=== PATIENT | female | born 2000 | race Caucasian/White ===

== ENCOUNTER 2025-02-19 09:57 | Emergency (ER) | payer SELFPAY ==
--- OUTSIDE RECORDS SUMMARY | 2025-02-19 10:06 | XMS_ITS | Encounter Summary ---
Author Organization [facility] Address [address] [place] [address] Care Team Providers Care Main Line Assembler Name Role Phone Lilly Zamudio PERRY Primary Care Provider [phone] Vale Walter DO Unavailable Encounter Details Date Type Department Care Team (Late st Contact Info) Description 07/30/2021 Likehack Message Enc [facility] Family Medicine [facility] [address] [place] [address] [facility] Provider Contact informtion Social History Tobacco Use Types Packs/Day Years Used Date Smoking Tobacco: Never Smokeless Tobacco: Never Alcohol Use Standard Drinks/Week Comments No 0 (1 standard drink = 0.6 oz pur e alcohol) AUDIT-C Answer Date Recorded Frequency of Alcohol Consumption Never 05/20/2018 Average Number of Drinks Not on file 019 Frequency of Binge Drinking Not on file 01/2019 PHQ-2 Answer Date Recorded PHQ-2 Score - If the patient scores above 3, please move on to questions 3-9 4 07/30/2021 Comments No Sex and Gender Information Value Date Recorded Sex Assigned at Female 09/09/2018 10:31 PM CDT Legal Sex Female 10:21 AM CDT Gender Identity Female 09/09/2018 10:31 PM CDT Sexual Orientation Straight 09/09/2018 10 :31 PM CDT COVID-19 Exposure Response Date Recorded In the last 10 days, have yo u been in contact with someone who was confirmed or suspected to have Coronavirus/COVID-19? No / Unsure 07/23/2021 7:24 AM CDT documented as of this encounter Functional Status * RETIRED Are you deaf or do you have serious difficulty hearing Answer Date of Assessment Author Status No 09/09/2018 10:45 PM CDT Acti ve * RETIRED Are you blind or do you have serious difficulty seeing, even when wearing glasses? Answer Date of Assessment Author Status No 09/09/2018 10:45 PM CDT Acti ve * Do you have serious difficulty walking or climbing stairs? Answer Date of Assessment Author Status No 09/09/2018 10:45 PM CDT Germania Yoon RN Active * Do you have difficulty dressing or bathing? Answer Date of Assessment Author Status No 09/09/2018 10:45 PM CDT Germania Yoon RN Active * Because of a physical, mental, or emotional condition, do you have difficulty doing errands alone such as visiting a doctor's office or shopping? Answer Date of Assessment Author Status No 09/09/2018 10:45 PM CDT Germania Yoon RN Active * Calculated C-SSRS Risk Score (Lifetime/Recent) Answer Date of Assessment Author Status No Risk Indicated 07/30/2021 12:49 PM CDT Miguel Urban MA Active * [place] Suicide Severity Rating Scale (Screener/Recent Self-Report) Question Answer Date of Assessment Author Status 1. Wish to be (Past 1 Month) No 07/30/2021 12:49 PM CDT Summer Urban MA Active 2. Non-Specific Active Suicidal Thoughts (Past 1 Month) No 07/30/2021 12:49 PM CDT Summer Urban MA Active 6. Suicidal Behavior (Lifetime) No 07/30/2021 12:49 PM Summer West MA Active documented as of this encounter Mental Status * Because of a physical, mental, or emotional condition, do you have serious difficulty concentrating, remembering, or making decisions? Answer Entry Date Author Status No 09/09/2018 10:45 PM CDT Germania Yoon RN Active documented in this encounter Plan of Treatment Upcoming Encounters Date Type Department Care Team (Late st Contact Info) Description 03/30/2025 2:40 PM CREPE BOX TENDER Office Visit [facility] Family Medicine - [place] [address] [place] [id number] Lilly Zamudio NP [address] [place] [address] documented as of this encounter Visit Diagnoses Not on filedocumented in this encounter Additional Health Concerns Infection Onset Date Last Indicated Resolved Time COVID-19 Rule Out 09/15/2021 09/15/2021 09/15/2021 1:56 PM CDT COVID-19 Rule Out 04/10/2022 04/10/2022 04/11/2022 9:52 AM CREPE BOX TENDER COVID-19 Rule Out 04/25/2022 04/25/2022 04/26/2022 2:02 AM CREPE BOX TENDER COVID-19 Confirmed 04/25/2022 04/25/2022 12:32 AM CREPE BOX TENDER COVID-19 Rule Out 12/19/2022 12/19/2022 12/20/2022 8:12 AM CDT Assessment Noted Time PHQ-9 Depression Total Score: 13 022 12:41 PM CDT documented as of this encounter Care Teams Main Line Assembler Relationship Specialty Start Date End Date Lilly Zamudio NP [address] [place] [address] PCP - General NURSE PRACTITIONER 05/14/18 Vale Walter DO [address] [place] [address] Referring Physician OBGYN 09/10/23 08/30/24 documented as of this encounter
--- OUTSIDE RECORDS SUMMARY | 2025-02-19 10:06 | XMS_ITS | Encounter Summary ---
Author Organization [facility] Address [address] [place] [address] Care Team Providers Care Environmental Engineer Scientist Name Role Phone Unavailable Primary Care Provider Unavailabl e Encounter Details Date Type Department Care Team (Late st Contact Info) Description 1998 Outpatient Historical [facility] Pediatrics - [facility] [address] [address] [facility] [address] [place] [address] James Dumont MD [address] [facility] [address] [place] [address] Social History Tobacco Use Types Packs/Day Years Used Date Smoking Tobacco: Never Assessed Comments Unknown Sex and Gender Information Value Date Recorded Sex Assigned at Not on file Legal Sex Female 5:25 AM BREAKER MECHANIC Gender Identity Not on file Sexual Orientation Not on file documented as of this encounter Plan of Treatment Not on file documented as of this encounter Procedures Procedure Name Priority Date/Time Associated Diagnosis Comments CHG POLIOVIRUS IPV VFC 8 12:00 AM BREAKER MECHANIC CHG DTAP VACCINE <7 YO IM VFC 1998 12:00 AM BREAKER MECHANIC documented in this encounter Visit Diagnoses Not on filedocumented in this encounter
--- OUTSIDE RECORDS SUMMARY | 2025-02-19 10:06 | XMS_ITS | Encounter Summary ---
Author Organization [facility] Address [address] [place] [address] Care Team Providers Care Sales Route Driver Helper Name Role Phone Unavailable Primary Care Provider Unavailabl e Encounter Details Date Type Department Care Team (Late st Contact Info) Description 1998 Outpatient Historical [facility] Pediatrics - [facility] [address] [address] [facility] [address] [place] [address] James Dumont MD [address] [facility] [address] [place] [address] Social History Tobacco Use Types Packs/Day Years Used Date Smoking Tobacco: Never Assessed Comments Unknown Sex and Gender Information Value Date Recorded Sex Assigned at Not on file Legal Sex Female 5:25 AM ICU TECH Gender Identity Not on file Sexual Orientation Not on file documented as of this encounter Plan of Treatment Not on file documented as of this encounter Visit Diagnoses Not on filedocumented in this encounter
--- OUTSIDE RECORDS SUMMARY | 2025-02-19 10:06 | XMS_ITS | Encounter Summary ---
Author Organization [facility] Address [address] [facility] [place] [address] Care Team Providers Care Air Cargo Ground Crew Supervisor Name Role Phone Lilly Zamudio MI-AUTOCAD OPERATOR Primary Care Provider [phone] Encounter Details Date Type Department Care Team (Late st Contact Info) Description 12/21/2024 Results Follow-Up [facility] - CONVENTION PLANNER [address] [place] [address] Christian Slaughter MD [address] [place] [address] Social History Tobacco Use Types Packs/Day Years Used Date Smoking Tobacco: Never Smokeless Tobacco: Never Alcohol Use Standard Drinks/Week Comments Never 0 (1 standard drink = 0.6 oz pur e alcohol) PHQ-2 Answer Date Recorded Patient Health Questionnaire-2 Score 0 10/25/2024 Comments No Sex and Gender Information Value Date Recorded Sex Assigned at Not on file Legal Sex Female 8:00 AM SUBSTITUTE TEACHER Gender Identity Not on file Sexual Orientation Not on file documented as of this encounter Plan of Treatment Not on file documented as of this encounter Procedures Procedure Name Priority Date/Time Associated Diagnosis Comments PROGESTERONE Routine 01/24/2025 10:00 AM CDT Female infertility PROGESTERONE Routine 12/23/2024 1:07 PM CDT Female infertility documented in this encounter Results * PROGESTERONE (01/24/2025 10:00 AM CDT) Progesterone 9.4 ng/mL [facility] ACCOUNT BILL Comment: Follicular phase 0.1 - 0.9 Luteal phase 1.8 - 23.9 Ovulation phase 0.1 - 12.0 First trimester 11.0 - 44.3 Second trimester 25.4 - 83.3 Third trimester 58.7 - 214.0 Postmenopausal 0.0 - 0.1 Blood BLOOD SPECIMEN / Unknown 01/24/2025 10:00 AM CDT 01/24/2025 Narrative [facility] ACCOUNT BILL - 01/25/2025 8:11 AM CDT Performed at: - [facility] [id number] Window Assembler: Alexander Todd PhD, Phone: [phone] Christian Slaughter MD LAB - CHEMISTRY ORDERABLES Fi nal Result [facility] ACCOUNT BILL [address] [place] [address] * PROGESTERONE (12/23/2024 1:07 PM CDT) Progesterone 3.7 ng/mL [facility] ACCOUNT BILL Comment: Follicular phase 0.1 - 0.9 Luteal phase 1.8 - 23.9 Ovulation phase 0.1 - 12.0 First trimester 11.0 - 44.3 Second trimester 25.4 - 83.3 Third trimester 58.7 - 214.0 Postmenopausal 0.0 - 0.1 Blood BLOOD SPECIMEN / Unknown 12/23/2024 1:07 PM CDT 12/23/2024 Narrative [facility] ACCOUNT BILL - 12/24/2024 9:10 AM CDT Performed at: - [facility] [address] [id number] Window Assembler: Alexander Todd PhD, Phone: [phone] Christian Slaughter MD LAB - CHEMISTRY ORDERABLES Fi nal Result [facility] ACCOUNT BILL [address] [place] [address] documented in this encounter Visit Diagnoses Diagnosis Female infertility- Primary documented in this encounter Care Teams Air Cargo Ground Crew Supervisor Relationship Specialty Start Date End Date Lilly Zamudio APRN-AUTOCAD OPERATOR [address] [place] [address] PCP - General Allergy and Immunology 10/25/24 documented as of this encounter
--- OUTSIDE RECORDS SUMMARY | 2025-02-19 10:06 | XMS_ITS | Encounter Summary ---
Author Organization [facility] Address [address] [place] [address] Care Team Providers Care Escrow Representative Name Role Phone Lilly Zamudio PERRY Primary Care Provider [phone] Vale Walter DO Unavailable [phone] Encounter Details Date Type Department Care Team (Late st Contact Info) Description 04/08/2023 Easy Metrics Message [facility] BUSINESS OFF[facility] Provider ACTION NEEDED Social History Tobacco Use Types Packs/Day Years Used Date Smoking Tobacco: Never Passive Smoke Exposure: Past Smokeless Tobacco: Never Alcohol Use Standard Drinks/Week Comments No 0 (1 standard drink = 0.6 oz pur e alcohol) AUDIT-C Answer Date Recorded Frequency of Alcohol Consumption Never 05/20/2018 Average Number of Drinks Not on file 019 Frequency of Binge Drinking Not on file 01/2019 PHQ-2 Answer Date Recorded Patient Health Questionnaire-2 Score 6 12/26/2022 Comments Yes Sex and Gender Information Value Date Recorded Sex Assigned at Female 09/09/2018 10:31 PM CDT Legal Sex Female 10:21 AM CDT Gender Identity Female 09/09/2018 10:31 PM CDT Sexual Orientation Straight 09/09/2018 10 :31 PM CDT documented as of this encounter Functional [...] Status No 09/09/2018 10:45 PM CDT Germania Yoon, RN Active * Do you have difficulty [...] PM CDT Germania Yoon RN Active documented as of this encounter Mental Status * Because of a physical, mental, or emotional condition, do you have serious difficulty concentrating, remembering, or making decisions? Answer Entry Date Author Status No 09/09/2018 10:45 PM CDT Germania Yoon RN Active documented in this encounter Plan of Treatment Upcoming Encounters Date Type Department Care Team (Late st Contact Info) Description 03/30/2025 2:40 PM PATTERN CUTTER Office Visit [facility] Family Medicine - [place] [address] [place] [phone] Lilly [place] [address] documented as of this encounter Visit Diagnoses Not on filedocumented in this encounter Additional Health Concerns Assessment Noted Time PHQ-9 Depression Total Score: 17 023 8:59 AM CDT documented as of this encounter Care Teams Escrow Representative Relationship Specialty Start Date End Date Lilly [place] [address] PCP - General NURSE PRACTITIONER 05/14/18 Vale Walter DO [address] [place] [address] Referring Physician OBGYN 09/10/23 08/30/24 documented as of this encounter
--- OUTSIDE RECORDS SUMMARY | 2025-02-19 10:06 | XMS_ITS | Encounter Summary ---
Author Organization [facility] Address [address] [place] [address] Care Team Providers Care Serging Machine Operator Name Role Phone Melvin Garcia Primary Care Provider [phone] Lilly Zamudio NP Primary Care Provider [phone] Vale Walter DO Unavailable [phone] Encounter Details Date Type Department Care Team (Latest Contact Info) Description 01/29/2018 Abstract [facility] Joaquina Ahn MD Social History Tobacco Use Types Packs/Day Years Used Date Smoking Tobacco: Never Assessed Comments Unknown Sex and Gender Information Value Date Recorded Sex Assigned at Female 09/09/2018 10:31 PM CDT Legal Sex Female 10:21 AM CDT Gender Identity Female 09/09/2018 10:31 PM CDT Sexual Orientation Straight 09/09/2018 10 :31 PM CDT documented as of this encounter Plan of Treatment Upcoming Encounters Date Type Department Care Team (Late st Contact Info) Description 03/30/2025 2:40 PM TOP BOTTOM ATTACHING MACHINE OPERATOR Office Visit [facility] Family Medicine - [place] [address] [place] [address] Lilly Zamudio NP [address] [place] [address] documented as of this encounter Visit Diagnoses Not on filedocumented in this encounter Additional Health Concerns Infection Onset Date Last Indicated Resolved Time COVID-19 Rule Out 09/15/2021 09/15/2021 09/15/2021 1:56 PM CDT COVID-19 Rule Out 04/10/2022 04/10/2022 04/11/2022 9:52 AM TOP BOTTOM ATTACHING MACHINE OPERATOR COVID-19 Rule Out 04/25/2022 04/25/2022 04/26/2022 2:02 AM TOP BOTTOM ATTACHING MACHINE OPERATOR COVID-19 Confirmed 04/25/2022 04/25/2022 12:32 AM TOP BOTTOM ATTACHING MACHINE OPERATOR COVID-19 Rule Out 12/19/2022 12/19/2022 12/20/2022 8:12 AM CDT documented as of this encounter Care Teams Serging Machine Operator Relationship Specialty Start Date End Date Melvin Garcia DO PCP - General 02/09/16 05/13/18 [place] [address] PCP - General NURSE PRACTITIONER 05/14/18 Vale Walter DO [address] [place] [address] Referring Physician DUNGN 09/10/23 08/30/24 documented as of this encounter
--- OUTSIDE RECORDS SUMMARY | 2025-02-19 10:06 | XMS_ITS | Encounter Summary ---
Author Organization [facility] Address [address] [place] [address] Care Team Providers Care Dimmer Board Operator Name Role Phone Unavailable Primary Care Provider Unavailabl e Encounter Details Date Type Department Care Team (Late st Contact Info) Description 1998 Outpatient Historical [facility] Pediatrics - [facility] [address] [address] [facility] [address] [place] [address] James Dumont MD [address] [facility] [address] [place] [address] Social History Tobacco Use Types Packs/Day Years Used Date Smoking Tobacco: Never Assessed Comments Unknown Sex and Gender Information Value Date Recorded Sex Assigned at Not on file Legal Sex Female 5:25 AM HOME INSURANCE AGENT Gender Identity Not on file Sexual Orientation Not on file documented as of this encounter Plan of Treatment Not on file documented as of this encounter Visit Diagnoses Not on filedocumented in this encounter
--- OUTSIDE RECORDS SUMMARY | 2025-02-19 10:06 | XMS_ITS | Encounter Summary ---
Author Organization [facility] Address [address] [place] [address] Care Team Providers Care Logistics Administrator Name Role Phone Unavailable Primary Care Provider Unavailabl e Encounter Details Date Type Department Care Team (Late st Contact Info) Description 1998 Outpatient Historical [facility] Pediatrics - [facility] [address] [address] [facility] [address] [place] [address] James Dumont MD [address] [facility] [address] [place] [address] Social History Tobacco Use Types Packs/Day Years Used Date Smoking Tobacco: Never Assessed Comments Unknown Sex and Gender Information Value Date Recorded Sex Assigned at Not on file Legal Sex Female 5:25 AM GLUE MACHINE OPERATOR Gender Identity Not on file Sexual Orientation Not on file documented as of this encounter Plan of Treatment Not on file documented as of this encounter Visit Diagnoses Not on filedocumented in this encounter
--- OUTSIDE RECORDS SUMMARY | 2025-02-19 10:06 | XMS_ITS | Encounter Summary ---
Author Organization [facility] Address [address] [place] [address] Care Team Providers Care Reducer Name Role Phone Unavailable Primary Care Provider Unavailabl e Encounter Details Date Type Department Care Team (Late st Contact Info) Description [address] [facility] Pediatrics - [facility] [address] [address] [facility] [address] [place] [address] James Dumont MD [address] [facility] [address] [place] [address] Social History Tobacco Use Types Packs/Day Years Used Date Smoking Tobacco: Never Assessed Comments Unknown Sex and Gender Information Value Date Recorded Sex Assigned at Not on file Legal Sex Female 5:25 AM OBSTETRICAL TECH Gender Identity Not on file Sexual Orientation Not on file documented as of this encounter Plan of Treatment Not on file documented as of this encounter Visit Diagnoses Not on filedocumented in this encounter
--- OUTSIDE RECORDS SUMMARY | 2025-02-19 10:06 | XMS_ITS | Encounter Summary ---
Author Organization [facility] Address [address] [place] [address] Care Team Providers Care Wafer Fabricator Name Role Phone Unavailable Primary Care Provider Unavailabl e Encounter Details Date Type Department Care Team (Late st Contact Info) Description 1998 Outpatient Historical [facility] Pediatrics - [facility] [address] [address] [facility] [address] [place] [address] James Dumont MD [address] [facility] [address] [place] [address] Social History Tobacco Use Types Packs/Day Years Used Date Smoking Tobacco: Never Assessed Comments Unknown Sex and Gender Information Value Date Recorded Sex Assigned at Not on file Legal Sex Female 5:25 AM ECOLOGY TEACHER Gender Identity Not on file Sexual Orientation Not on file documented as of this encounter Plan of Treatment Not on file documented as of this encounter Visit Diagnoses Not on filedocumented in this encounter
--- OUTSIDE RECORDS SUMMARY | 2025-02-19 10:06 | XMS_ITS | Patient Health Record ---
Author Organization [facility] Address [address] [place] [address] Care Team Providers Care Casting House Laborer Name Role Phone Luca Young Unavailable [phone] Allergies No Known Allergies Reason For Referral No Information Plan Of Treatment No Information Insurance Providers Payer Name Payer Address Payer Phone Subscriber Number Group Number Insured Name Patient Relationship to Insured Coverage Start Date Coverage End Date [place], [place] [id number] Karissa Shepherd Self - patient is the insured Medical (General) History Surgical History Surgery Date(Month/Year)
--- OUTSIDE RECORDS SUMMARY | 2025-02-19 10:06 | XMS_ITS | Encounter Summary ---
Author Organization [facility] Address [address] [place] [address] Care Team Providers Care Thread Tool Grinder Set Up Operator Name Role Phone Unavailable Primary Care Provider Unavailabl e Encounter Details Date Type Department Care Team (Late st Contact Info) Description 1998 Outpatient Historical [facility] Pediatrics - [facility] [address] [address] [facility] [address] [place] [address] James Dumont MD [address] [facility] [address] [place] [address] Social History Tobacco Use Types Packs/Day Years Used Date Smoking Tobacco: Never Assessed Comments Unknown Sex and Gender Information Value Date Recorded Sex Assigned at Not on file Legal Sex Female 5:25 AM PROFESSOR OF ARCHAEOLOGY Gender Identity Not on file Sexual Orientation Not on file documented as of this encounter Plan of Treatment Not on file documented as of this encounter Visit Diagnoses Not on filedocumented in this encounter
--- OUTSIDE RECORDS SUMMARY | 2025-02-19 10:06 | XMS_ITS | Clinical Summary ---
Author Organization [facility] Address [address] [place] [address] Phone Care Team Providers Care Seed Sorter Name Role Phone Unavailable Primary Care Provider Unavailabl e Allergies No known active allergies Medications sertraline (ZOLOFT) 100 mg tablet Take 100 mg by mouth daily. 4 Active letrozole (FEMARA) 2.5 mg tablet Take 2.5 mg by mouth see administration instructions. Take one tablet on cycle day 3 through 7. 5 Active gabapentin (NEURONTIN) 300 mg capsule Take 300 mg by mouth 3 times daily. 4 Active vibegron (Gemtesa) 75 mg Tablet Take 75 mg by mouth daily. 5 Active albuterol sulfate HFA 90 mcg/actuation aerosol inhaler Take 2 Puffs by inhalation every 6 hours as needed. Active Encounters Date Type Department Care Team Description 02/15/2025 External Device Data ST[facility] ABSTRACTION Provider, Abstract 02/08/2025 External Device Data [facility] ABSTRACTION Provider, Abstract 02/08/2025 External Device Data [facility] ABSTRACTION Provider, Abstract 02/08/2025 External Device Data [facility] ABSTRACTION Provider, Abstract 01/12/2025 External Device Data [facility] ABSTRACTION Provider, Abstract 01/11/2025 External Device Data [facility] ABSTRACTION Provider, Abstract 01/11/2025 External Device Data [facility] ABSTRACTION Provider, Abstract 01/08/2025 10:42 AM CDT - 01/08/2025 1:27 PM CDT Emergency [facility] Emergency Department [address] [place] [id number] Richard Szymanski MD Moderate left ankle sprain, initial encounter (Primary Dx); Sprain of right ankle, unspecified ligament, initial encounter Discharge Disposition: Home or Self Care 01/08/2025 Travel from Last 3 Months Social History Tobacco Use Types Packs/Day Years Used Date Smoking Tobacco: Never Smokeless Tobacco: Never Tobacco Cessation:Counseling Given: Not Answered Alcohol Use Standard Drinks/Week Comments Never 0 (1 standard drink = 0.6 oz pur e alcohol) Feeling Safe Answer Date Recorded Are you in a relationship wi th someone who hurts you emotionally and/or physically? 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 Gender Identity Not on file Sexual Orientation Not on file Last Filed Vital Signs Vital Sign Reading Time Taken Comments Blood Pressure 125/71 01/08/2025 1:15 PM CDT Pulse 62 01/08/2025 1:15 PM CDT Temperature 36.8 C (98.2 F) 01/08/2025 10:45 AM CDT Respiratory Rate 17 01/08/2025 10:45 AM CDT Oxygen Saturation 96% 01/08/2025 1:15 PM CDT Inhaled Oxygen Concentration - - Weight 99.8 kg (220 lb) 01/08/2025 10:45 AM CDT Height 165.1 cm (5' 5) 01/08/2025 10:45 AM CDT Body Mass Index 36.61 01/08/2025 10:45 AM CDT Plan of Treatment Health Maintenance Due Date Last Done Comments DTAP/TDAP/TD VACCINES (7 - T d or Tdap) 12/16/2018 12/16/2008, 12/12/2003, 12/12/2003, Additional history exists CERVICAL CANCER SCREENING 2019 HPV/Cotest (21-29) 2019 PAP SMEAR 2019 INFLUENZA VACCINE (#1) 2024 03/28/2022, 2018 HPV VACCINES (1 - 3-dose SCD M series) 2025 HEPATITIS B VACCINES Completed 01/02/2009, 1998, 1998, Additional history exists Procedures Procedure Name Priority Date/Time Associated Diagnosis Comments XR ANKLE 3+ VW RIGHT Stat 01/08/2025 11:08 AM CDT XR ANKLE 3+ VW LEFT Stat 01/08/2025 1 1:07 AM CDT from Last 3 Months Results * XR ANKLE 3+ VW RIGHT (01/08/2025 11:08 AM CDT) Anatomical Region Laterality Modality Ankle / Foot Computed Radiogr aphy Impressions 01/08/2025 11:18 AM CDT IMPRESSION: Bone and joint structures are within normal limits. Electronically signed by: JEREMY PADILLA M.D. Date: 01/08/2025 Time: 11:18 Narrative 01/08/2025 11:18 AM CDT EXAM: RIGHT ANKLE THREE VIEWS HISTORY: Fall, injury FINDINGS: Bone and joint structures appear normal. No fracture or joint dislocation. There is no joint effusion. Bone density is unremarkable. Procedure Note Bird Padilla Jr., MD - 01/08/2025 EXAM: RIGHT ANKLE THREE VIEWS HISTORY: Fall, injury FINDINGS: Bone and joint structures appear normal. No fracture or jointdislocation. There is no joint effusion. Bone density is unremarkable. IMPRESSION: Bone and joint structures are within normal limits. Electronically signed by: JEREMY PADILLA M.D. Date: 01/08/2025 Time: 11:18 us Richard Szymanski MD DIAGNOSTIC IMAGING ORDER HEAVENLY Final Result * XR ANKLE 3+ VW LEFT (01/08/2025 11:07 AM CDT) Anatomical Region Laterality Modality Ankle / Foot Computed Radiogr aphy Impressions 01/08/2025 11:19 AM CDT IMPRESSION: No acute osseous abnormality. Lateral ankle soft tissue swelling. Electronically signed by: RAMY DAVISON M.D. Date: 01/08/2025 Time: 11:17 Narrative 01/08/2025 11:19 AM CDT EXAM: LEFT ANKLE; AP, LATERAL, AND OBLIQUE VIEWS HISTORY: INJURY;FALL COMPARISON: None FINDINGS: There is no acute fracture or dislocation. Joint spaces and alignment are maintained. The ankle mortise is maintained. The talar dome has a normal contour. Lateral ankle soft tissue swelling is seen. Procedure Note Ramy Davison MD - 01/08/2025 EXAM: LEFT ANKLE; AP, LATERAL, AND OBLIQUE VIEWS HISTORY: INJURY;FALL COMPARISON: None FINDINGS: There is no acute fracture or dislocation. Joint spaces andalignment are maintained. The ankle mortise is maintained. The talar dome has a normal contour. Lateral anklesoft tissue swelling is seen. IMPRESSION: No acute osseous abnormality. Lateral ankle soft tissue swelling. Electronically signed by: RAMY DAVISON M.D. Date: 01/08/2025 Time: 11:17 us Richard Fly Szymanski MD DIAGNOSTIC IMAGING ORDER HEAVENLY Final Result from Last 3 Months
--- OUTSIDE RECORDS SUMMARY | 2025-02-19 10:06 | XMS_ITS | Patient Health Record ---
Author Organization [facility] Address [address] [place] [address] Care Team Providers Care Agriculture Mechanic Name Role Phone Luca Young Unavailable [phone] Allergies No Known Allergies Reason For Referral No Information Social History Tobacco Use: Social History Observation Description Date Details (start date - stop date) Never Smoker NA - NA Tobacco Use/Smoking Question Answer Notes Are you a nonsmoker Plan Of Treatment No Information Insurance Providers Payer Name Payer Address Payer Phone Subscriber Number Group Number Insured Name Patient Relationship to Insured Coverage Start Date Coverage End Date [facility] [address] [place] [address] [id number] Karissa Baez aas Self - patient is the insured Medical (General) History Surgical History Surgery Date(Month/Year)
--- OUTSIDE RECORDS SUMMARY | 2025-02-19 10:06 | XMS_ITS | Clinical Summary ---
Author Organization [facility] Address [address] [facility] [address] [place] [address] Phone Care Team Providers Care Museum Technician Name Role Phone Lilly Zamudio PERRY Primary Care Provider [phone] Allergies No known active allergies Medications ibuprofen (ADVIL,MOTRIN) 600 mg tablet Take 1 tablet (600 mg total) by mouth every 6 (six) hours as needed for pain 90 tablet 1 Active sertraline (ZOLOFT) 50 mg tablet Take 50 mg by mouth daily 2 Active sertraline (ZOLOFT) 25 mg tablet 25 mg 0 Active dextroamphetamine-a mphetamine XR (ADDERALL XR) 5 mg 24 hr capsule Take 5 mg by mouth every morning 2 Active prednisoLONE ODT (ORAPRED ODT) 10 mg disintegrating tablet Start 40mg/d for 3d, then 20mg/d for 3 d, then 10mg/d for 3d 21 tablet 2 Active cyclobenzaprine (FLEXERIL) 10 mg tablet Take 1 tablet (10 mg total) by mouth 2 (two) times a day as needed for muscle spasms 15 tablet 2 Active Active Problems Problem Noted Date Diagnosed Date Peritonsillar abscess 07/28/2021 Social History Tobacco Use Types Packs/Day Years Used Date Smoking Tobacco: Never Smokeless Tobacco: Never Personal Safety Answer Date Recorded Getting School Help Needed Not on file 04/27 Education Answer Date Recorded What is the highest level of school you have completed or the highest degree you have received? 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 Not on file Not on file Obstetrics History Last Filed Vital Signs Vital Sign Reading Time Taken Comments Blood Pressure 123/75 02/22/2022 8:54 PM CDT Pulse 85 02/22/2022 8:54 PM CDT Temperature 36.7 C (98 F) 02/22/2022 8:54 PM CDT Respiratory Rate 18 02/22/2022 8:54 PM CDT Oxygen Saturation 97% 02/22/2022 8:54 PM CDT Inhaled Oxygen Concentration - - Weight 84.1 kg (185 lb 6.5 oz) 02/22/2022 8:54 P M CDT Height 165.1 cm (5' 5) 02/22/2022 8:54 PM CDT Body Mass Index 30.85 02/22/2022 8:54 PM CDT Plan of Treatment Health Maintenance Due Date Last Done Comments Cervical Cancer Screening 1998 Depression Screening 1998 Hepatitis C Screening 1998 Regular Well Visit/Exam 18-64 01/15/2016 Pneumococcal vaccine <65 (1 of 2 - PCV) 2017 DTaP/Tdap/Td Vaccine (7 - Td or Tdap) 12/16/2018 12/16/2008, 12/12/2003, 12/12/2003, Additional history exists Influenza Vaccine (#1) 2025 , 02/18/2018, 02/18/2018 HPV Vaccines (1 - 3-dose SCD M series) 2025 Varicella Vaccines Completed 12/12/2008, 01/19/1999 Hepatitis B Screening Completed 01/02/2009 , 1998, 1998, Additional history exists Insurance [facility] PPO [place] [employer] COMPENSATION [facility] Advance Directives For more information, please contact: [phone] * Full Code (Latest Code Status on File) Date Activated Date Inactivated Comments 07/28/2021 7:43 PM 07/30/2021 5:08 PM Care Teams Museum Technician Relationship Specialty Start Date End Date Lilly Zamudio NP [address] [place], [place] [id number] PCP - General Naphthalene Operator 01/12/21
--- OUTSIDE RECORDS SUMMARY | 2025-02-19 10:06 | XMS_ITS | Clinical Summary ---
Author Organization [facility] Address [address] [place] [address] Care Team Providers Care Solid Fiber Paster Operator Name Role Phone Lilly Zamudio INSURANCE ADJUSTOR-THEATRE ARTS PROFESSOR Primary Care Provider [phone] Source Comments [facility],non-owned Affiliates and Associated Physician Practices is amultiple site organization consisting of ambulatory clinics and hospital sitesin [place], [place], [place] and [place]. This disclosure is being madepursuant to the Care Everywhere program and may not contain all information available regarding this patient. Last updated 18.[facility] [employer] Allergies No known active allergies Medications * Be aware that medications may not be up to date on this document. Alwaysverify current medications with the patient. albuterol HFA (Proventil; Ventolin; Proair) 108 (90 Base) MCG/ACT inhaler Inhale 2 (two) puffs by mouth every 6 hours as needed Active sertraline (Zoloft) 100 MG tablet Take 1 (one) tablet by mouth once daily 09/08/19 24 Active gabapentin (Neurontin) 300 MG capsule Take 1 (one) capsule by mouth 3 times daily 90 capsule 01/29/20 24 Active vibegron (Gemtesa) 75 MG tabletIndicati ons:OAB (overactive bladder) Take 1 (one) tablet by mouth once daily 30 tablet 2 10/26/19 25 Active letrozole (Femara) 2.5 MG tablet TAKE 1 TABLET BY MOUTH ON CYCLE DAYS 3 THROUGH 7 5 tablet 02/11/20 Active letrozole (Femara) 2.5 MG tablet Take one tablet on cycle day 3 through 7. 5 tablet 12/25/19 25 025 Discontinued(Re order) letrozole (Femara) 2.5 MG tablet Take one tablet on cycle day 3 through 7. 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 Torsion of right ovary and ovarian pedicle 04/17 Amenorrhea 03/14/2023 Peritonsillar abscess 07/28/2021 Increased frequency of urination 07/22/2019 Overview (02/20/2024): Frequency of micturition; Progress: Stable Added By: Kelsy Peck Add to Current Problems: YES ProblemStatus: Current Osteoporosis 12/16/2018 Pain in the coccyx 11/03/2018 Overview (02/20/2024): Sacrococcygeal disorders, not elsewhere classified; Progress: Stable Added By: Crystal Koch Add to Current Problems: YES ProblemStatus: Current Superficial dyspareunia 11/03/2018 Overview (02/20/2024): Superficial (introital) dyspareunia; Progress: Stable Added By: Crystal Koch Add to Current Problems: YES ProblemStatus: Current Hypertension affecting 09/09/2018 Generalized anxiety disorder 02/12/2016 Asthma 11/30/2015 Dysmenorrhea 11/30/2015 Encounters Date Type Department Care Team Description 02/10/2025 Refill [facility] - VENEREAL DISEASE INVESTIGATOR [address] [place] [address] [place] [address] Christian Slaughter MD Refill Request 01/04/2025 Refill [facility] - VENEREAL DISEASE INVESTIGATOR [address] [place] [address] [place] [address] Christian Slaughter MD Refill Request 12/21/2024 Results Follow-Up [facility] - VENEREAL DISEASE INVESTIGATOR [address] [place] [address], [address] [place] [address] Christian Slaughter MD 12/20/2024 Telephone [facility] - VENEREAL DISEASE INVESTIGATOR [address] [facility], [facility] [address] [place] [address] Christian Slaughter MD LABS ONLY 12/06/2024 Results Follow-Up [facility] - VENEREAL DISEASE INVESTIGATOR [address] [place] [address], [facility] [address] [place] [address] Christian Slaughter MD from Last 3 Months Immunizations Immunization Administration Dates Next Due DTAP, HISTORIC VACCINE 12/12/2003 DTAP/IPV 12/12/2003 DTaP VACCINE IM (6wk-6yrs) 04/25/1999,,1998,03/13 HEP B VACCINE 01/02/2009 HEP B VACCINE, PED/ADOL 1998,1998, HIB VACCINE 04/25/1999, 9,1998,03/13 INFLUENZA VACCINE, QUADR. (F LUZONE; FLULAVAL; FLUARIX; AFLURIA QUADRIVALENT; 6MO+), 0.5 ML (IIV4) 03/28/2022,02/18/2019,02/18/2018 MENINGOCOCCAL ACWY (MCV4P) VAC IM 11/30/2015 MMR 09/14/2018 MMR VACCINE 12/12/2008,01/19/1999 POLIO IPV 01/19/1999,1998,1998 POLIO,HISTORIC VACCINE 12/12/2003 ROTAVIRUS, HISTORIC VACCINE 1998, 9,1998 TDAP (7yrs+) 12/12/2003 TDAP, HISTORIC VACCINE 12/16/2008 VARICELLA 12/12/2008,01/19/1999 Family History Medical History Relation Name Comments Cancer - Ovarian Mother Cancer - Thyroid Paternal Grandfather Relation Name Status Comments Father high blood pressure Mother Paternal Grandfather Social History Tobacco Use Types Packs/Day Years [...] on file 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 Gender Identity Not on file Sexual Orientation Not on file Last Filed Vital Signs Vital Sign Reading Time Taken Comments Blood Pressure 138/82 10/25/2024 2:50 PM CDT Pulse 64 10/25/2024 11:14 AM CDT Temperature - - Respiratory Rate - - Oxygen Saturation - - Inhaled Oxygen Concentration - - Weight 102.9 kg (226 lb 12.8 oz) 10/25/2024 2:50 PM CDT Height 165.1 cm (5' 5) 10/25/2024 2:50 PM CDT Body Mass Index 37.74 10/25/2024 2:50 PM CDT Plan of Treatment Health Maintenance Due Date Last Done Comments HEPATITIS C SCREENING 01/10/2016 PNEUMOCOCCAL VACCINE (1 of 2 - PCV) 2017 DTAP/TDAP/TD VACCINES (7 - Td or Tdap) 12/16/2018 12/16/2008, 12/12/2003, 12/12/2003, Additional history exists PAP SMEAR 2019 COVID-19 VACCINE ( season) 2025 06/15/2021, 05/25/2021 INFLUENZA VACCINE (#1) 2025 2, 02/18/2019, 02/18/2018 HPV VACCINE (1 - 3-dose SCDM series) 2025 ZOSTER VACCINE (1 of 2) 01/15/2048 HIB VACCINE Completed 04/25/1999, 09/1998, 1998, Additional history exists HEPATITIS B VACCINE Completed 01/02/2009, 1998, 1998, Additional history exists MENINGOCOCCAL GROUPS A/C/Y/W VACCINE Completed 11/30/2015 HIV SCREENING Completed 06/27/2018, 01/26/2018 DEPRESSION SCREENING Completed 10/25/2024, 01/29/20 24 MENINGOCOCCAL (Group B) VACCINE SHARED DECISION-MAKING Aged Out No longer eligible based on patient's age to complete this topic Procedures Procedure Name Priority Date/Time Associated Diagnosis Comments PROGESTERONE Routine 01/24/2025 10:00 AM CDT Female infertility PROGESTERONE Routine 12/23/2024 1:07 PM CDT Female infertility PROGESTERONE Routine 12/20/2024 1:35 PM CDT Female infertility PROLACTIN Routine 12/04/2024 10:25 AM CDT Female infertility TSH HI LOW REFLEX FREE T4 Routine 12/04/2024 10:25 AM CDT Female infertility Class 2 obesity HEMOGLOBIN A1C Routine 12/04/2024 10:25 AM CDT Female infertility Class 2 obesity ESTRADIOL Routine 12/04/2024 10:24 AM CDT Female infertility FSH + LH PANEL Routine 12/04/2024 10:24 AM CDT Female infertility from Last 3 Months Results * PROGESTERONE (01/24/2025 10:00 AM CDT) Only the most recent of3 resultswithin the time period is included. Progesterone 9.4 ng/mL [facility] ACCOUNT BILL Comment: Follicular phase 0.1 - 0.9 Luteal phase 1.8 - 23.9 Ovulation phase 0.1 - 12.0 First trimester 11.0 - 44.3 Second trimester 25.4 - 83.3 Third trimester 58.7 - 214.0 Postmenopausal 0.0 - 0.1 Blood BLOOD SPECIMEN / Unknown 01/24/2025 10:00 AM CDT 01/24/2025 Narrative [facility] ACCOUNT BILL - 01/25/2025 8:11 AM CDT Performed at: [facility] [id number] Printed Circuit Board Panels Trimmer: Alexander Todd PhD, Phone: [phone] Christian Slaughter MD LAB - CHEMISTRY ORDERABLES Fi nal Result [facility] ACCOUNT BILL [address] [place] [address] * TSH HI LOW REFLEX FREE T4 (12/04/2024 10:25 AM CDT) Pathologist [facility] TSH 2.590 0.450 - 4.500 uIU/mL [facility] ACCOUNT BILL Blood BLOOD SPECIMEN / Unknown 12/04/2024 10:25 AM CDT 12/04/2024 Narrative [facility] ACCOUNT BILL - 12/05/2024 8:09 AM CDT Performed at: - [address] [id number] [employer] Board Panels Trimmer: Alexander Todd PhD, Phone: [phone] Christian Slaughter MD LAB - CHEMISTRY ORDERABLES Fi nal Result Performing Organization Address City/[facility] Co de Phone Number [facility] ACCOUNT BILL [address] [place] [address] * PROLACTIN (12/04/2024 10:25 AM CDT) [facility] Prolactin 13.7 4.8 - 33.4 ng/mL [facility] ACCOUNT BILL Blood BLOOD SPECIMEN / Unknown 12/04/2024 10:25 AM CDT 12/04/2024 Narrative [facility] ACCOUNT BILL - 12/05/2024 8:09 AM CDT Performed at: [facility] [address] [id number] [employer] Board Panels Trimmer: Alexander Todd PhD, Phone: [phone] Christian Slaughter MD LAB - CHEMISTRY ORDERABLES Fi nal Result Performing Organization Address City/[facility] Co de Phone Number [facility] ACCOUNT BILL [address] [place] [address] * HEMOGLOBIN A1C (12/04/2024 10:25 AM CDT) [facility] Hemoglobin A1c 5.6 4.8 - 5.6 % [facility] ACCOUNT BILL Comment: Prediabetes: 5.7 - 6.4 Diabetes: >6.4 Glycemic control for adults with diabetes: <7.0 Blood BLOOD SPECIMEN / Unknown 12/04/2024 10:25 AM CDT 12/04/2024 Narrative [facility] ACCOUNT BILL - 12/05/2024 7:08 AM CDT Performed at: - [address] [id number] [employer] Board Panels Trimmer: Alexander Todd PhD, Phone: [phone] Christian Slaughter MD LAB - CHEMISTRY ORDERABLES Fi nal Result Performing Organization Address [facility] de Phone Number [facility] ACCOUNT BILL [address] [place] [address] * ESTRADIOL (12/04/2024 10:24 AM CDT) [facility] Estradiol 21.7 pg/mL [facility] ACCOUNT BILL Comment: Adult Female Range Follicular phase 12.5 - 166.0 Ovulation phase 85.8 - 498.0 Luteal phase 43.8 - 211.0 Postmenopausal <6.0 - 54.7 1st trimester 215.0 - >4300.0 Morgan ECLIA methodology Blood BLOOD SPECIMEN / Unknown 12/04/2024 10:24 AM CDT 12/04/2024 Narrative [facility] ACCOUNT BILL - 12/05/2024 6:42 AM CDT Performed at: [address] [id number] [employer] Board Panels Trimmer: Alexander Todd PhD, Phone: [phone] Christian Slaughter MD LAB - CHEMISTRY ORDERABLES Fi nal Result Performing Organization Address [facility] Co de Phone Number [facility] ACCOUNT BILL [address] [place] [address] * FSH + LH PANEL (12/04/2024 10:24 AM CDT) [facility] LH 5.6 mIU/mL [facility] ACCOUNT BILL Comment: Adult Female Range Follicular phase 2.4 - 12.6 Ovulation phase 14.0 - 95.6 Luteal phase 1.0 - 11.4 Postmenopausal 7.7 - 58.5 FSH 7.8 mIU/mL [facility] ACCOUNT BILL Comment: Adult Female Range Follicular phase 3.5 - 12.5 Ovulation phase 4.7 - 21.5 Luteal phase 1.7 - 7.7 Postmenopausal 25.8 - 134.8 Blood BLOOD SPECIMEN / Unknown 12/04/2024 10:24 AM CDT 12/04/2024 Narrative [facility] ACCOUNT BILL - 12/05/2024 6:42 AM CDT Performed at: 01 - [facility] [id number] Printed Circuit Board Panels Trimmer: Alexander oTdd PhD, Phone: [phone] us Christian Slaughter MD LAB - CHEMISTRY ORDERABLES Fi nal Result [facility] ACCOUNT BILL [address] [place] [address] from Last 3 Months Care Teams Solid Fiber Paster Operator Relationship Specialty Start Date End Date Lilly Zamudio APRN-THEATRE ARTS PROFESS[place] [address] PCP - General Allergy and Immunology 10/25/24
--- OUTSIDE RECORDS SUMMARY | 2025-02-19 10:06 | XMS_ITS | Encounter Summary ---
Author Organization [facility] Address [address] [place] [address] Care Team Providers Care Cut Off Saw Operator Name Role Phone Unavailable Primary Care Provider Unavailabl e Encounter Details Date Type Department Care Team (Late st Contact Info) Description 1998 Outpatient Historical [facility] Pediatrics - [facility] [address] 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
--- OUTSIDE RECORDS SUMMARY | 2025-02-19 10:06 | XMS_ITS | Encounter Summary ---
Author Organization [facility] Address [address] [place] [address] Care Team Providers Care Hall Coordinator Name Role Phone Unavailable Primary Care Provider Unavailabl e Encounter Details Date Type Department Care Team (Late st Contact Info) Description 1998 Outpatient Historical [facility] Pediatrics - [facility] [address] [address] [facility] [address] [place] [address] James Dumont MD [address] [facility] [address] [place] [address] Social History Tobacco Use Types Packs/Day Years Used Date Smoking Tobacco: Never Assessed Comments Unknown Sex and Gender Information Value Date Recorded Sex Assigned at Not on file Legal Sex Female 5:25 AM FACULTY I ON CALL MEDICAL ASSISTANT Gender Identity Not on file Sexual Orientation Not on file documented as of this encounter Plan of Treatment Not on file documented as of this encounter Procedures Procedure Name Priority Date/Time Associated Diagnosis Comments CHG HEPATITIS B VACCINE PED ADOL IM 3 DOSE VFC 1998 12:00 AM CDT documented in this encounter Visit Diagnoses Not on filedocumented in this encounter
--- OUTSIDE RECORDS SUMMARY | 2025-02-19 10:06 | XMS_ITS | Encounter Summary ---
Author Organization [facility] Address [address] [place] [address] Care Team Providers Care Math And Physics Instructor Name Role Phone Unavailable Primary Care Provider Unavailabl e Encounter Details Date Type Department Care Team (Late st Contact Info) Description 1998 Outpatient Historical [facility]3] Pediatrics - [facility] [id number] [facility] [address] [place] [address] James Dumont MD [address] [facility] [address] [place] [address] Social History Tobacco Use Types Packs/Day Years Used Date Smoking Tobacco: Never Assessed Comments Unknown Sex and Gender Information Value Date Recorded Sex Assigned at Not on file Legal Sex Female 5:25 AM NATUROPATH Gender Identity Not on file Sexual Orientation Not on file documented as of this encounter Plan of Treatment Not on file documented as of this encounter Procedures Procedure Name Priority Date/Time Associated Diagnosis Comments CHG POLIOVIRUS IPV C 9 12:00 AM NATUROPATH CHG DTAP VACCINE <7 YO IM VFC 1998 12:00 AM NATUROPATH documented in this encounter Visit Diagnoses Not on filedocumented in this encounter
--- OUTSIDE RECORDS SUMMARY | 2025-02-19 10:06 | XMS_ITS | Encounter Summary ---
Author Organization [facility] Address [address] [place] [address] Care Team Providers Care Synthetic Department Supervisor Name Role Phone Unavailable Primary Care Provider Unavailabl e Encounter Details Date Type Department Care Team (Late st Contact Info) Description 1998 Outpatient Historical [facility] - [facility] [address] [address] [facility] [address] [place] [address] James Dumont MD [address] [facility] [address] [place] [address] Social History Tobacco Use Types Packs/Day Years Used Date Smoking Tobacco: Never Assessed Comments Unknown Sex and Gender Information Value Date Recorded Sex Assigned at Not on file Legal Sex Female 5:25 AM BAND SAW FILER Gender Identity Not on file Sexual Orientation Not on file documented as of this encounter Plan of Treatment Not on file documented as of this encounter Visit Diagnoses Not on filedocumented in this encounter
--- OUTSIDE RECORDS SUMMARY | 2025-02-19 10:06 | XMS_ITS | Encounter Summary ---
Author Organization [facility] Address [address] [place] [address] Care Team Providers Care Carding Doubler Name Role Phone Unavailable Primary Care Provider Unavailabl e Encounter Details Date Type Department Care Team (Late st Contact Info) Description 1998 Outpatient Historical [facility] Pediatrics - [facility] [address] [address] [facility] [address] [place] [address] James Dumont MD [address] [facility] [address] [place] [address] Social History Tobacco Use Types Packs/Day Years Used Date Smoking Tobacco: Never Assessed Comments Unknown Sex and Gender Information Value Date Recorded Sex Assigned at Not on file Legal Sex Female 5:25 AM INSURANCE SOLICITOR Gender Identity Not on file Sexual Orientation Not on file documented as of this encounter Plan of Treatment Not on file documented as of this encounter Visit Diagnoses Not on filedocumented in this encounter
--- OUTSIDE RECORDS SUMMARY | 2025-02-19 10:06 | XMS_ITS | Encounter Summary ---
Author Organization [facility] Address [address] [place] [address] Care Team Providers Care Senior Software Systems Engineer Name Role Phone Unavailable Primary Care Provider Unavailabl e Encounter Details Date Type Department Care Team (Late st Contact Info) Description 1998 Outpatient Historical [facility] Pediatrics - [facility] [address] [address] [facility] [address] [place] [address] James Dumont MD [address] [facility] [address] [place] [address] Social History Tobacco Use Types Packs/Day Years Used Date Smoking Tobacco: Never Assessed Comments Unknown Sex and Gender Information Value Date Recorded Sex Assigned at Not on file Legal Sex Female 5:25 AM SPINDLE MAKER Gender Identity Not on file Sexual Orientation Not on file documented as of this encounter Plan of Treatment Not on file documented as of this encounter Visit Diagnoses Not on filedocumented in this encounter
--- OUTSIDE RECORDS SUMMARY | 2025-02-19 10:06 | XMS_ITS | Encounter Summary ---
Author Organization [facility] Address [address] [place] [address] Care Team Providers Care Senior Engineering Associate Name Role Phone Lilly Zamudio PERRY Primary Care Provider [phone] Vale Walter DO Unavailable [phone] Encounter Details Date Type Department Care Team (Late st Contact Info) Description 08/15/2021 [employer] Message Enc [facility] Family Medicine - [address] [place] [address] [facility] Questionnaires for upcoming Virtual visit- Social History Tobacco Use Types Packs/Day Years [...] st Contact Info) Description 03/30/2025 2:40 PM DRILLING ENGINEER Office Visit [facility] Family Medicine - [address] [place] [address] Lilly Zamudio NP [address] [place] [address] documented as of this encounter Visit Diagnoses Not on filedocumented in this encounter Additional Health Concerns Infection Onset Date Last Indicated Resolved Time COVID-19 Rule Out 09/15/2021 09/15/2021 09/15/2021 1:56 PM CDT COVID-19 Rule Out 04/10/2022 04/10/2022 04/11/2022 9:52 AM DRILLING ENGINEER COVID-19 Rule Out 04/25/2022 04/25/2022 04/26/2022 2:02 AM DRILLING ENGINEER COVID-19 Confirmed 04/25/2022 04/25/2022 12:32 AM DRILLING ENGINEER COVID-19 Rule Out 12/19/2022 12/19/2022 12/20/2022 8:12 AM CDT Assessment Noted Time PHQ-9 Depression Total Score: 13 022 12:41 PM CDT documented as of this encounter Care Teams Senior Engineering Associate Relationship Specialty Start Date End Date Lilly Zamudio [place] [address] PCP - General NURSE PRACTITIONER 05/14/18 Vale Walter DO [facility] [place] [address] Referring Physician DUNGN 09/10/23 08/30/24 documented as of this encounter
--- OUTSIDE RECORDS SUMMARY | 2025-02-19 10:06 | XMS_ITS | Encounter Summary ---
Author Organization [facility] Address [address] [place] [address] Care Team Providers Care Prn Occupational Therapist Name Role Phone Unavailable Primary Care Provider Unavailabl e Encounter Details Date Type Department Care Team (Late st Contact Info) Description 1998 Outpatient Historical [facility] Pediatrics - [facility] [address] [address] [facility] [address] [place] [address] [place] [address] [facility] [address] [place] [address] Social History Tobacco Use Types Packs/Day Years Used Date Smoking Tobacco: Never Assessed Comments Unknown Sex and Gender Information Value Date Recorded Sex Assigned at Not on file Legal Sex Female 5:25 AM ICING MIXER Gender Identity Not on file Sexual Orientation Not on file documented as of this encounter Plan of Treatment Not on file documented as of this encounter Visit Diagnoses Not on filedocumented in this encounter
--- OUTSIDE RECORDS SUMMARY | 2025-02-19 10:06 | XMS_ITS | Clinical Summary ---
Author Organization [facility] Address [address] [place] [address] Care Team Providers Care C.O.D. Biller Name Role Phone Lilly Zamudio PERRY Primary Care Provider [phone] Allergies No known active allergies Medications albuterol sulfate HFA 108 (90 Base) MCG/ACT inhaler Inhale 2 puffs into the lungs every 6 (six) hours as needed for Wheezing. 18 g 3 Active dicyclomine (BENTYL) 20 MG tablet Take 1 tablet (20 mg total) by mouth every 6 (six) hours as needed (stomach pain). 20 tablet 4 Active methylPREDNISol one, KENNEDY, (MEDROL DOSEPAK) 4 MG tablet Take 1 tablet (4 mg total) by mouth 2 (two) times daily. Follow package directions 1 each 5 Active sertraline (ZOLOFT) 100 MG tabletIndicatio ns:Generalized anxiety disorder TAKE 1 TABLET(100 MG) BY MOUTH DAILY 90 tablet 1 5 Active Active Problems Problem Noted Date Diagnosed Date Torsion of right ovary and ovarian pedicle 04/17 S/P ovarian cystectomy 04/17/2023 History of unilateral salpingectomy 04/17/2023 Osteoporosis 12/16/2018 Hypertension affecting ([facility]) 09/09 Generalized anxiety disorder 02/12/2016 Asthma ([facility]) 11/30/2015 Dysmenorrhea 11/30/2015 Resolved Problems Problem Noted Date Diagnosed Date Resolved Date Peritonsillar abscess 07/28/20212021 Brain fog 07/06/2021 03/28/2022 (spontaneous vaginal delivery) ([facility]) 9 03/28/2022 ([facility]) 01/13/2018 Bronchitis, acute 09/02/2017 03/28/2022 Acute pharyngitis 08/15/2017 03/28/2022 Acute sinusitis 08/15/2017 03/28/2022 Sore throat 08/15/2017 03/28/2022 Flu-like symptoms 08/13/2017 03/28/2022 Viral warts 07/30/2017 03/28/2022 Fever, unspecified fever cause 06/07/2016 03/28/2022 Encounter for preventive health examination 11/08/2015 01/21/2020 Immunizations Immunization Administration Dates Next Due Dtap 04/25/1999, 9,1998,03/13 Dtap (Acel-Immune) 04/25/1999, 9,1998,03/13 Dtap (Generic) 12/12/2003 Fluzone 6 Months+ Quad (0.5 mL Prefilled Syringe) 03/28/2022,02/18/2019 Hepatitis B 01/02/2009 Hepatitis B Pediatric 1998,1998,090 11/1997 Hib 04/25/1999, 9,1998,03/13 Hib (Generic) 04/25/1999, 9,1998,03/13 Influenza Adult (Generic) 02/18/2018 MMR 09/14/2018,12/12/2008,01/19/1999 MMR (MMRII) 09/14/2018,12/12/2008,01/19/1999 Menactra 11/30/2015 Meningococcal (Menactra) 11/30/2015 Meningococcal Vac A,C,Y,W-135 Sc 11/30/2015 Polio IPV (Ipol) 01/19/1999,1998, 8 Polio Ipv (Generic) 12/12/2003 Polio Opv (Generic) 12/12/2003 Rotavirus (Generic) 1998,1998,1997 Rotavirus (Rotashield) 1998,1998,06/1997 Tdap (Generic) 12/16/2008,12/12/2003 Varicella (Varivax) 12/12/2008,01/19/1999 Varicella Vaccine 12/12/2008,01/19/1999 Family History Medical History Relation Comments Hypertension Father Ovarian Cancer Mother Hypertension Paternal Grandfather Relation Status Comments Daughter Alive Father Alive Maternal Grandfather Maternal Grandmother Mother Alive Paternal Grandfather Paternal Grandmother Alive Sister Alive Social History Tobacco Use Types Packs/Day Years Used Date Smoking Tobacco: Never Passive Smoke Exposure: Past Smokeless Tobacco: Never Tobacco Cessation:Counseling Given: Not Answered Alcohol Use Standard Drinks/Week Comments No 0 (1 standard drink = 0.6 oz pur e alcohol) AUDIT-C Answer Date Recorded Frequency of Alcohol Consumption Never 05/20/2018 Average Number of Drinks Not on file 019 Frequency of Binge Drinking Not on file 01/2019 PHQ-2 Answer Date Recorded Patient Health Questionnaire-2 Score 5 09/23/2024 Comments No Sex and Gender Information Value Date Recorded Sex Assigned at Female 09/09/2018 10:31 PM CDT Legal Sex Female 10:21 AM CDT Gender Identity Female 09/09/2018 10:31 PM CDT Sexual Orientation Straight 09/09/2018 10 :31 PM CDT Last Filed Vital Signs Vital Sign Reading Time Taken Comments Blood Pressure 131/82 11/02/2024 4:54 PM CDT Pulse 82 11/02/2024 4:54 PM CDT Temperature 36.9 C (98.4 F) 11/02/2024 4:54 PM CDT Respiratory Rate 18 11/02/2024 4:54 PM CDT Oxygen Saturation 96% 11/02/2024 4:54 PM CDT Inhaled Oxygen Concentration - - Weight 100.7 kg (222 lb) 11/02/2024 4:54 PM CDT Height 165.1 cm (5' 5) 11/02/2024 4:54 PM CDT Body Mass Index 36.94 11/02/2024 4:54 PM CDT Plan of Treatment Upcoming Encounters Date Type Department Care Team (Late st Contact Info) Description 03/30/2025 2:40 PM PATIENT FINANCIAL SERVICES SPECIALIST Office Visit [facility] Family Medicine - [place] [address] [place] [address] Lilly Zamudio NP [address] [place] [address] Health Maintenance Due Date Last Done Comments Cervical Cancer Screening Pap Smear (Age 21 to 29) Every 3 Years 1998 Cervical Cancer Screening 1998 Hepatitis C 01/15/2016 Pneumococcal Vaccine: Pediatrics (0 to 5 Years) and At-Risk Patients (6 to 49 Years) (1 of 2 - PCV) 2017 DTaP, Tdap and Td Vaccines (7 - Td or Tdap) 12/16/2018 12/16/2008, 12/12/2003, 12/12/2003, Additional history exists COVID-19 Vaccine ( season) 2025 06/15/2021, 05/25/2021 HPV Vaccines (1 - 3-dose SCDM series) 2025 Influenza Adult (#1) 2025 03/28/2022, 02/18/2019, 02/18/2018 Annual Physical 09/23/2025 09/23/2024, 03/28/2022 Hepatitis B Vaccines Completed 01/02/2009, 1998, 1998, Additional history exists Meningococcal Vaccine Completed 11/30/2015 , 11/30/2015, 11/30/2015 PHQ-2 (Physician [place]) Completed 09/23/2024 Meningococcal B Vaccine Aged Out No l onger eligible based on patient's age to complete this topic RSV Immunizations Under 20 Months Aged Out No longer eligible based on patient's age to complete this topic Insurance [facility] Care Teams C.O.D. Biller Relationship Specialty Start Date End Date Lilly [place] [address] PCP - General NURSE PRACTITIONER 05/14/18
--- OUTSIDE RECORDS SUMMARY | 2025-02-19 10:06 | XMS_ITS | Clinical Summary ---
Author Organization [facility] Address [address] [place] [address] Care Team Providers Care Drawer Waxer Name Role Phone Unavailable Primary Care Provider Unavailabl e Social History Tobacco Use Types Packs/Day Years Used Date Smoking Tobacco: Never Assessed Comments Unknown Sex and Gender Information Value Date Recorded Sex Assigned at Not on file Legal Sex Female 8:35 AM HOUSE VISITOR Gender Identity Not on file Sexual Orientation Not on file Plan of Treatment Health Maintenance Due Date Last Done Comments Hepatitis C Virus (HCV) Screening 1998 Influenza Immunization (#1) 2025 02/18/2019, 1 SARS-COV-2 Immunization ( season) 2025 Human Papillomavirus (HPV) Immunization (1 - 3-dose SCDM series) 2025 Respiratory Syncytial Virus (RSV) Immunization (Adult) (1 - 1-dose 75+ series) 2073 DTaP/Tdap/Td Immunization Discontinued 2008, 12/12/2003, 04/25/1999, Additional history exists TdaP Immunization Completed 12/16/2008 Hepatitis B Immunization Completed 009, 1998, 1998, Additional history exists Meningococcal Immunization (ACWY) Completed 11/30/2015 Pneumococcal Immunization Combined Aged Out No longer eligible based on patient's age to complete this topic Rotavirus Immunization Aged Out No lo nger eligible based on patient's age to complete this topic Insurance [employer] on file
--- OUTSIDE RECORDS SUMMARY | 2025-02-19 10:06 | XMS_ITS | Encounter Summary ---
Author Organization [facility] Address [address] [place] [address] Care Team Providers Care Decorator Street And Building Name Role Phone Unavailable Primary Care Provider Unavailabl e Encounter Details Date Type Department Care Team (Late st Contact Info) Description 1998 Outpatient Historical [facility] Pediatrics - [facility] [address] [address] [facility] [address] [place] [address] James Dumont MD [address] [facility] [address] [place] [address] Social History Tobacco Use Types Packs/Day Years Used Date Smoking Tobacco: Never Assessed Comments Unknown Sex and Gender Information Value Date Recorded Sex Assigned at Not on file Legal Sex Female 5:25 AM COMMERCIAL LOAN COLLECTION OFFICER Gender Identity Not on file Sexual Orientation Not on file documented as of this encounter Plan of Treatment Not on file documented as of this encounter Visit Diagnoses Not on filedocumented in this encounter
--- OUTSIDE RECORDS SUMMARY | 2025-02-19 10:06 | XMS_ITS | Encounter Summary ---
Author Organization [facility] Address [address] [place] [address] Care Team Providers Care Coil Placer Name Role Phone Lilly Zamudio PERRY Primary Care Provider [phone] Vale Walter DO Unavailable [phone] Encounter Details Date Type Department Care Team (Late st Contact Info) Description 05/07/2022 [employer] Message Enc [facility] Family Medicine [facility] [address] [place] [address] [facility] today Social History Tobacco Use Types Packs/Day Years [...] 3, please move on to questions 3-9 3 03/28/2022 Comments No Sex and Gender Information Value [...] suspected to have Coronavirus/COVID-19? No / Unsure 05/10/2022 10:40 AM SUPPLY CHAIN BUSINESS ANALYST documented as of this encounter Functional Status [...] No 09/09/2018 10:45 PM CDT Germania Yoon, JIMMY Active * Because of a physical, mental, [...] st Contact Info) Description 03/30/2025 2:40 PM SUPPLY CHAIN BUSINESS ANALYST Office Visit [facility] Family Medicine - [place] [address] [place] [address] Lilly Zamudio NP [address] [place] [address] documented as of this encounter Visit Diagnoses Not on filedocumented in this encounter Additional Health Concerns Infection Onset Date Last Indicated Resolved Time COVID-19 Confirmed 04/25/2022 04/25/2022 12:32 AM SUPPLY CHAIN BUSINESS ANALYST COVID-19 Rule Out 12/19/2022 12/19/2022 12/20/2022 8:12 AM CDT Assessment Noted Time PHQ-9 Depression Total Score: 14 022 7:33 AM SUPPLY CHAIN BUSINESS ANALYST documented as of this encounter Care Teams Coil Placer Relationship Specialty Start Date End Date Lilly [place] [address] PCP - General NURSE PRACTITIONER 05/14/18 Vale Walter DO [address] [place] [id number] Referring Physician MARY 09/10/23 08/30/24 documented as of this encounter
--- OUTSIDE RECORDS SUMMARY | 2025-02-19 10:06 | XMS_ITS | Encounter Summary ---
Author Organization [facility] Address [address] [place] [address] Care Team Providers Care Supersonic Engineer Name Role Phone Unavailable Primary Care Provider Unavailabl e Encounter Details Date Type Department Care Team (Late st Contact Info) Description 1998 Outpatient Historical [facility] Pediatrics - [facility] [address] [address] [facility] [address] [place] [address] James Dumont MD [address] [facility] [address] [place] [address] Social History Tobacco Use Types Packs/Day Years Used Date Smoking Tobacco: Never Assessed Comments Unknown Sex and Gender Information Value Date Recorded Sex Assigned at Not on file Legal Sex Female 5:25 AM DELIVERY ROOM CLERK Gender Identity Not on file Sexual Orientation Not on file documented as of this encounter Plan of Treatment Not on file documented as of this encounter Visit Diagnoses Not on filedocumented in this encounter
--- OUTSIDE RECORDS SUMMARY | 2025-02-19 10:06 | XMS_ITS | Encounter Summary ---
Author Organization [facility] Address [address] [place] [address] Care Team Providers Care Ict Managers Name Role Phone Unavailable Primary Care Provider Unavailabl e Encounter Details Date Type Department Care Team (Late st Contact Info) Description 1998 Outpatient Historical [facility] Pediatrics - [facility] [address] [facility] [address] [place] [address] James Dumont MD [address] [facility] [address] [place] [address] Social History Tobacco Use Types Packs/Day Years Used Date Smoking Tobacco: Never Assessed Comments Unknown Sex and Gender Information Value Date Recorded Sex Assigned at Not on file Legal Sex Female 5:25 AM TEST DEVELOPMENT ENGINEER Gender Identity Not on file Sexual Orientation Not on file documented as of this encounter Plan of Treatment Not on file documented as of this encounter Visit Diagnoses Not on filedocumented in this encounter
--- OUTSIDE RECORDS SUMMARY | 2025-02-19 10:06 | XMS_ITS | Encounter Summary ---
Author Organization [facility] Address [address] [place] [address] Care Team Providers Care Administrative Supervisor Name Role Phone Unavailable Primary Care Provider Unavailabl e Encounter Details Date Type Department Care Team (Late st Contact Info) Description 1998 Outpatient Historical [facility] Pediatrics - [facility] [address] [address] [facility] [address] [place] [address] James Dumont MD [address] [facility] [address] [place] [address] Social History Tobacco Use Types Packs/Day Years Used Date Smoking Tobacco: Never Assessed Comments Unknown Sex and Gender Information Value Date Recorded Sex Assigned at Not on file Legal Sex Female 5:25 AM INSPECTING ENGINEER Gender Identity Not on file Sexual Orientation Not on file documented as of this encounter Plan of Treatment Not on file documented as of this encounter Visit Diagnoses Not on filedocumented in this encounter
--- OUTSIDE RECORDS SUMMARY | 2025-02-19 10:06 | XMS_ITS | Encounter Summary ---
Author Organization [facility] Address [address] [place] [address] Care Team Providers Care Landing Worker Name Role Phone Unavailable Primary Care Provider Unavailabl e Encounter Details Date Type Department Care Team (Late st Contact Info) Description [address] [facility] Pediatrics - [facility] [address] [address] [facility] [address] [place] [address] James Dumont MD [address] [facility] [address] [place] [address] Social History Tobacco Use Types Packs/Day Years Used Date Smoking Tobacco: Never Assessed Comments Unknown Sex and Gender Information Value Date Recorded Sex Assigned at Not on file Legal Sex Female 5:25 AM MEDICAL PATHOLOGIST Gender Identity Not on file Sexual Orientation Not on file documented as of this encounter Plan of Treatment Not on file documented as of this encounter Visit Diagnoses Not on filedocumented in this encounter
--- OUTSIDE RECORDS SUMMARY | 2025-02-19 10:06 | XMS_ITS | Encounter Summary ---
Author Organization [facility] Address [address] [place] [address] Care Team Providers Care Centerless Grinding Machine Adjuster Name Role Phone Unavailable Primary Care Provider Unavailabl e Encounter Details Date Type Department Care Team (Late st Contact Info) Description 1998 Outpatient Historical [facility] Pediatrics - [facility] [address] [address] [facility] [address] [place] [address] James Dumont MD [address] [facility] [address] [place] [address] Social History Tobacco Use Types Packs/Day Years Used Date Smoking Tobacco: Never Assessed Comments Unknown Sex and Gender Information Value Date Recorded Sex Assigned at Not on file Legal Sex Female 5:25 AM PROBATION OFFICER Gender Identity Not on file Sexual Orientation Not on file documented as of this encounter Plan of Treatment Not on file documented as of this encounter Visit Diagnoses Not on filedocumented in this encounter
--- OUTSIDE RECORDS SUMMARY | 2025-02-19 10:06 | XMS_ITS | Encounter Summary ---
Author Organization [employer] Address [address] [place] [address] Care Team Providers Care Artificial Intelligence Specialist Name Role Phone Unavailable Primary Care Provider Unavailabl e Encounter Details Date Type Department Care Team (Latest Contact Info) Description 1998 Inpatient Historical HIS PATIENT IN A BED James Dumont MD [address] [facility] [address] [place], [place] [id number] Acute bronchiolitis due to other infectious organisms (Primary Dx) Social History Tobacco Use Types Packs/Day Years Used Date Smoking Tobacco: Never Assessed Comments Unknown Sex and Gender Information Value Date Recorded Sex Assigned at Not on file Legal Sex Female 5:25 AM ETHICS MANAGER Gender Identity Not on file Sexual Orientation Not on file documented as of this encounter Plan of Treatment Not on file documented as of this encounter Visit Diagnoses Diagnosis Acute bronchiolitis due to other infectious organisms- Primary documented in this encounter
--- OUTSIDE RECORDS SUMMARY | 2025-02-19 10:07 | XMS_ITS | Encounter Summary ---
Author Organization [facility] Address [address] [place] [address] Care Team Providers Care Ware Tester Name Role Phone Lilly Zamudio PROVIDER SERVICE REPRESENTATIVE Primary Care Provider [phone] Vale Walter DO Unavailable [phone] Encounter Details Date Type Department Care Team (Late st Contact Info) Description 03/24/2024 [employer] Message Enc [facility] Family Medicine - [place] [address] [place] [address] Lilly Zamudio NP [address] [place] [address] Back and Hip Pain Social History Tobacco Use Types Packs/Day Years [...] Patient Health Questionnaire-2 Score 6 12/26/2022 Comments No Sex and Gender Information Value [...] PM CDT Germania Yoon, JIMMY Active * Do you have difficulty dressing [...] st Contact Info) Description 03/30/2025 2:40 PM MANAGER PMO Office Visit [facility] Family Medicine [address] [address] Lilly Zamudio NP [address] [place] [address] documented as of this encounter Visit Diagnoses Not on filedocumented in this encounter Additional Health Concerns Assessment Noted Time PHQ-9 Depression Total Score: 17 023 8:59 AM CDT documented as of this encounter Care Teams Ware Tester Relationship Specialty Start Date End Date Lilly [place] [address] PCP - General NURSE PRACTITIONER 05/14/18 Vale Walter DO [address] [place] [address] Referring Physician MARY 09/10/23 08/30/24 documented as of this encounter
--- OUTSIDE RECORDS SUMMARY | 2025-02-19 10:07 | XMS_ITS | Encounter Summary ---
Author Organization [facility] Address [address] [place] [address] Care Team Providers Care Supervisor Files Name Role Phone Lilly Zamudio ASSISTED LIVING COORDINATOR Primary Care Provider [phone] Encounter Details Date Type Department Care Team (Late st Contact Info) Description 11/02/2024 [employer] Message Enc [facility] Family Medicine - [place] [address] [place] [id number] Lilly Zamudio NP [address] [place] [address] [place] Social History Tobacco Use Types Packs/Day Years [...] of Assessment Author Status No Risk Indicated 11/02/2024 4:56 PM CDT Brie Donahue Nurse Aco Coordinator II Active * Morton Suicide Severity Rating Scale (Screener/Recent Self-Report) Question Answer Date of Assessment Author Status 1. Wish to be (Past 1 Month) No 11/02/2024 4:56 PM CDT Bonita Donahue Nurse Aco Coordinator II Active 2. Non-Specific Active Suicidal Thoughts (Past 1 Month) No 11/02/2024 4:56 PM LUPET Bonita Donahue Nurse Aco Coordinator II Active 6. Suicidal Behavior (Lifetime) No 11/02/2024 4:56 PM Bonita Miller Nurse Aco Coordinator II Active documented as of this encounter Mental Status * Because of a physical, mental, or emotional condition, do you have serious difficulty concentrating, remembering, or making decisions? Answer Entry Date Author Status No 09/09/2018 10:45 PM LUPET Germania Yoon RN Active documented in this encounter Plan of Treatment Upcoming Encounters Date Type Department Care Team (Late st Contact Info) Description 03/30/2025 2:40 PM EXHAUSTER Office Visit [facility] Medical [address] [address] Lilly Zamudio NP [address] [place] [address] documented as of this encounter Visit Diagnoses Not on filedocumented in this encounter Additional Health Concerns Assessment Noted Time PHQ-9 Depression Total Score: 21 09/23/ 025 1:22 PM CDT documented as of this encounter Care Teams Supervisor Files Relationship Specialty Start Date End Date Lilly Zamudio NP [address] [place] [address] PCP - General NURSE PRACTITIONER 05/14/18 documented as of this encounter
[2025-02-19 10:11] VITALS: BP 136/70; PULSE 85; RESP 18; TEMP 36.4; O2SAT 97
--- NOTE | 2025-02-19 10:22 | ED_ITS ---
HPI - URI/Sore Throat General Chief Complaint: Upper Respiratory Infection Stated Complaint: URI Time Seen by Provider: 02/19/25 10:23 Source: patient Mode of arrival: ambulatory Limitations: no limitations History of Present Illness HPI Narrative: 25 y/o female with hx asthma presented for c/o nasal congestion and drainage, and cough. Onset over one week. Says cough is worse today; endorses productive of green sputum, chest feels tight and burning, and breathing is 'dry.' Taking dayquil, vicks and vicks nasal stick. Denies cp, sob, wheezing, n/v/d/f/c. Related Data Home Medications ?Medication ?Instructions ?Recorded ?Confirmed ?Last Taken ?Type letrozole 2.5 mg tablet mg 02/19/25 Unknown History sertraline 100 mg tablet mg 02/19/25 Unknown History Allergies Allergy/AdvReac Type Severity Reaction Status Date / Time No Known Allergies Allergy Verified 02/19/25 10:18 Review of Systems Review of Systems: CONSTITUTIONAL: Denies body aches, fever, chills, or sweats. EYES: Denies visual changes, redness, or discharge. ENT: reports rhinorrhea, congestion, Denies sore throat, or otalgia. CARDIOVASCULAR: Denies chest pain, palpitations, or edema. RESPIRATORY: Reports cough, chest tightness denies sob, wheezing. GASTROINTESTINAL: Denies abdominal pain, nausea, vomiting, or diarrhea. NEUROLOGIC: Denies headache, numbness, tingling, or weakness. All systems reviewed & are unremarkable except as noted in HPI and below PMFSH Past Medical History Medical History (Updated 02/19/25 @ 11:15 by Yesenia Douglas, [place]) Asthma Comments At time of signature, I have reviewed and agree with nursing past medical, surgical, social and family history unless otherwise noted. Please see nursing chart for further information. There is no relevant family history pertinent to the presenting complaint Exam Narrative: GENERAL: mildly ill-appearing, in no acute distress. EYES: EOMI. No redness or drainage. Conjunctivae normal. ENT: Mucous membranes pink and moist. Congestion and rhinorrhea. TMs normal bilaterally. Throat normal. Uvula midline. CHEST: No respiratory distress; speaks full sentences. Frequent moist harsh cough. Lungs clear and diminished to all cruz. HEART: Regular rate and rhythm. No murmur appreciated. SKIN: Warm, dry, no rash. Capillary refill normal. Normal skin turgor. NEURO: Alert and oriented x3. Gait steady. PSYCH: Normal affect. Course Course Emergency Course: Patient is aware of diagnosis, understands and agrees to treatment plan. Anticipatory guidance given. Patient agrees to follow-up as directed and is aware of reasons to seek care at the emergency department. Portions of this record may have been created with voice recognition software Level of Care: Express Care Visit Vital Signs Vital signs: Vital Signs Temperature 97.5 F L 02/19/25 10:11 Pulse Rate 85 02/19/25 10:11 Respiratory Rate 18 02/19/25 10:11 Blood Pressure 136/70 02/19/25 10:11 Pulse Oximetry 97 02/19/25 10:11 Oxygen Delivery Room Air 02/19/25 10:11 Temperature 97.5 F L 02/19/25 10:11 Pulse Rate 85 02/19/25 10:11 Respiratory Rate 18 02/19/25 10:11 Blood Pressure 136/70 02/19/25 10:11 Pulse Oximetry 97 02/19/25 10:11 Oxygen Delivery Room Air 02/19/25 10:11 MDM - URI/Sore Throat MDM Narrative Medical decision making narrative: Discussed physical exam findings c/w sinusitis and asthma flare. Pt has inhaler and nebs. Will send abx and steroid. Advised supportive measures and signs/symptoms to go to the ER. Pt is appropriate for outpt treatment and f/u. Differential Diagnosis Differential diagnosis: Likely upper respiratory infection, sinusitis, viral infection, bronchitis, pharyngitis and other (Angioedema, perforation, asthma, pneumonia, PE, tension pneumothorax, cardiac tamponade PR, pericarditis, pleural effusion, CHF, bronchitis, cardiac arrhythmia) Discharge Plan Discharge Clinical Impression: Sinusitis, Bronchitis Patient Disposition: Home Condition: Stable Instructions: Antibiotic Form, Asthma (ED) Additional Instructions: Take medication as directed Use your inhaler as needed for shortness of breath/wheezing Recommendations: Flonase spray and Zyrtec (or Claritin/Harriett) for nasal congestion over the counter Cough syrup may cause drowsiness; avoid driving or take it at night time. Tylenol every 8 hours as needed for pain rest, push fluids, and increase humidity of the air at home. Follow up with your primary care provider as needed in 1 week Go to the ER for worsening symptoms or concerns Patient Language: Mongolian Prescriptions: New benzonatate 200 mg capsule 200 mg PO TID PRN (Reason: cough) Qty: 20 0RF methylprednisolone [Medrol (Hunter)] 4 mg tablets,dose pack See Rx Instructions .ROUTE .COMPLEX Qty: 21 0RF Rx Instructions: orally per package directions amoxicillin-pot clavulanate 875-125 mg tablet 1 tablet PO Q12H 7 Days Qty: 14 0RF No Action sertraline 100 mg tablet letrozole 2.5 mg tablet Follow-up/Referrals: Robb,[place] Carr [Primary Care Provider] Time of Disposition: 11:12
== END 2025-02-19 11:16 | disposition home or self-care (01) ==
PROVIDERS: Emergency Provider Nurse Practitioner Family; PCP Nurse Practitioner
DX: J32.9 Chronic sinusitis, unspecified (principal); J40 Bronchitis, not specified as acute or chronic; J45.909 Unspecified asthma, uncomplicated
CPT/HCPCS: 99203; G0463

== ENCOUNTER 2025-04-17 16:43 | Emergency (ER) | payer SELFPAY ==
[2025-04-17 16:47] VITALS: BP 137/85; PULSE 82; RESP 16; TEMP 36.1; O2SAT 100
[2025-04-17] MEDS: FAMOTIDINE 20 MG/2 ML VIAL IV PUSH (17:03)
[2025-04-17] MEDS: MAG HYDROX/AL HYDROX/SIMETH 30 ML UDC PO (17:03)
[2025-04-17 17:13] LABS: BEDSIDEPREGUCG Negative (Negative)
[2025-04-17 17:22] LABS: Hematocrit 42.4 % (37.0-47.0); Hemoglobin 13.9 g/dL (12.0-15.0); Immature Granulocyte Percent A 0.3 % (0-0.5); Lymphocytes Absolute Auto 1.43 K/mm3 (0.9-3.2); Mean Corpuscular HGB Conc 32.8 g/dl (32-36); Mean Corpuscular Hemoglobin 27.9 pg (26-34); Mean Corpuscular Volume 85.0 fl (80-100); Nucleated Red Blood Cells Absolute Auto 0.000 K/mm3 (0.0-0.012); Nucleated Red Blood Cells Perc 0.0 % (0.0-0.2); Platelet Count Result 252 k/mm3 (150-375); Red Blood Count 4.99 M/mm3 (4.2-5.4); White Blood Count 6.2 K/mm3 (4.5-10.0)
[2025-04-17 17:27] LABS: Add Urine Microscopic? YES; Appearance Urine Clear (Clear); Glucose Urine UA Negative (Negative); Leukocyte Esterase Ur Negative LEU/UL (Negative); Nitrate Urine Negative (Negative); Non Pathogenic Casts 0-2; Specific Grav Ur 1.024 (1.001-1.035)
[2025-04-17 17:32] LABS: Alanine Aminotransferase 61 U/L (6-35); Albumin Level 4.6 g/dL (3.5-5.1); Alkaline Phosphatase 57 U/L (38-126); Anion Gap 7 mmol/L (4-12); Aspartate Amino Transferase 42 U/L (14-36); Bilirubin,Total 0.7 mg/dL (0.2-1.3); Blood Urea Nitrogen 14 mg/dL (7-17); Calcium 9.4 mg/dL (8.4-10.2); Carbon Dioxide 26 mmol/L (22-30); Chloride 107 mmol/L (98-107); Estimated CRCL calculation 98 ml/min; Estimated Glomerular Filt Rate > 60; Glucose 88 mg/dL (65-110); Lipase 92 U/L (23-300); Potassium 4.0 mmol/L (3.4-5.0); Sodium 140 mmol/L (137-145); Total Protein 8.1 g/dL (6.3-8.2)
--- NOTE | 2025-04-17 18:13 | ED_ITS ---
HPI - Abdominal Pain General Chief Complaint: Abdominal Pain Stated Complaint: abd pain x 2 months Time Seen by Provider: 04/17/25 16:51 History of Present Illness HPI narrative: Patient presents here due to abdominal bloating, diarrhea, ongoing for about 2 months, worse after eating. History of possible gastric ulcer when she got GERD symptoms that improved after oral medications Related Data Home Medications ?Medication ?Instructions ?Recorded ?Confirmed ?Last Taken ?Type letrozole 2.5 mg tablet mg 02/19/25 Unknown History sertraline 100 mg tablet mg 02/19/25 Unknown History Allergies Allergy/AdvReac Type Severity Reaction Status Date / Time No Known Allergies Allergy Verified 02/19/25 10:18 Review of Systems 2 Review of Systems: All systems reviewed & are unremarkable except as noted in HPI and below PMFSH Past Medical History Medical History (Updated 04/17/25 @ 18:03 by Marielena Peterson MD) Asthma Exam 2 Narrative: EXAMINATION OF ORGAN SYSTEMS/BODY AREAS: Constitutional: Vital signs per nursing GENERAL:[No acute distress, non-toxic appearing.] HEAD: Normal with no signs of head trauma. EYES: EOMI, conjunctiva normal ENT: Hearing grossly intact LUNGS: Nonlabored breathing. HEART: [Regular rate and rhythm] ABD: [Soft], [nontender to palpation] EXT: Normal range of motion SKIN: [No rashes or lesions.] NEURO: [Alert. No gross focal sensory or strength deficits.] PSYCH: Normal affect Course Vital Signs Vital signs: Vital Signs Temperature 97 F L 04/17/25 16:47 Pulse Rate 82 04/17/25 16:47 Respiratory Rate 16 04/17/25 16:47 Blood Pressure 137/85 04/17/25 16:47 Pulse Oximetry 100 04/17/25 16:47 Oxygen Delivery Room Air 04/17/25 16:47 Temperature 97 F L 04/17/25 16:47 Pulse Rate 82 04/17/25 16:47 Respiratory Rate 16 04/17/25 16:47 Blood Pressure 137/85 04/17/25 16:47 Pulse Oximetry 100 04/17/25 16:47 Oxygen Delivery Room Air 04/17/25 16:47 MDM MDM Narrative Medical decision making narrative: Electronic medical record was reviewed. Patient presented to the ED with complaint of [abdominal cramping and diarrhea, ongoing for months]. Vitals [were within acceptable limits]. Physical exam revealed soft abdomen, no tenderness to palpation. Based on the patient's history and physical exam, my differential includes but is not limited to [gastritis, gastroenteritis, cholecystitis, pancreatitis, IBS, IBD]. [IV access was established by nursing staff. Patient was given Maalox, famotidine]. CBC, BMP, lipase, LFTs, bilirubin and alk phos were obtained. Labs were pertinent for very minimally elevated liver enzymes. With shared decision making medication, given her symptoms, I discussed that we may not necessarily find any answers on the CT, since she has no insurance she would rather not get a CT here, and follow-up with GI. I discussed that I think there is a good chance her symptoms online and completely with IBS, though I cannot make the diagnosis and today, I feel like it would be worth trialing the some dietary changes. Patient lives milk and drinks 2 cups of whole milk daily, and she also eats a lot of spicy foods, I did let her know she can try to cut out certain foods and drinks and add on more water. Also will prescribe appears medications to help symptoms. There were no witnessed episodes of vomiting in the emergency department. They are not complaining of any new abdominal pain. Repeat examination did not show any significant guarding or rebound. No new tenderness. At this time I do not feel there is any further emergent treatment to be provided. The patient was given strict return precautions, if they are to develop any worsening abdominal pain, vomiting, or blood in the vomit they are to return to the emergency department immediately. Patient verbally acknowledges understanding these directions. [The patient was informed of the above diagnostic test findings.] They will be discharged home [with prescriptions]. They were advised to follow-up with GI in 2 days. The patient feels that this is appropriate medical decision making and verbalizes an understanding of the discharge instructions. Differential Diagnosis Differential Diagnosis: IBS, PUD, IBD, etc. Lab Data 04/17/25 17:13 04/17/25 17:13 Labs: Lab Results 04/17/25 04/17/25 Range/Units 17:10 17:13 WBC 6.2 (4.5-10.0) K/mm3 RBC 4.99 (4.2-5.4) M/mm3 Hgb 13.9 (12.0-15.0) g/dL Hct 42.4 (37.0-47.0) % MCV 85.0 (80-100) fl MCH 27.9 (26-34) pg MCHC 32.8 (32-36) g/dl RDW 13.4 (11.5-14.5) % Plt Count 252 (150-375) k/mm3 MPV 10.8 H (7.4-10.4) fl Immature Gran % (Auto) 0.3 (0-0.5) % Neut % (Auto) 62.1 (45.5-73.1) % Lymph % (Auto) 23.3 (18.3-44.2) % [place] % (Auto) 10.4 H (2.6-8.5) % Eos % (Auto) 3.4 (0-4.4) % Baso % (Auto) 0.5 (0.2-1.2) % Lymph # (Auto) 1.43 (0.9-3.2) K/mm3 [place] # (Auto) 0.6 (0.1-0.6) K/mm3 Eos # (Auto) 0.2 (0-0.3) K/mm3 Baso # (Auto) 0.0 (0.0-0.1) K/mm3 Abs Immat Gran (auto) 0.02 (0.00-0.031) K/mm3 Absolute Neuts (auto) 3.8 (1.3-6.7) K/mm3 Absolute Nucleated RBC 0.000 (0.0-0.012) K/mm3 Nucleated RBC % 0.0 (0.0-0.2) % Sodium 140 (137-145) mmol/L Potassium 4.0 (3.4-5.0) mmol/L Chloride 107 (98-107) mmol/L Carbon Dioxide 26 (22-30) mmol/L Anion Gap 7 (4-12) mmol/L BUN 14 (7-17) mg/dL Creatinine 0.92 (0.7-1.0) mg/dL Estim Creat Clear Calc 98 ml/min Estimated GFR > 60 (59 - ) Glucose 88 (65-110) mg/dL Calcium 9.4 (8.4-10.2) mg/dL Total Bilirubin 0.7 (0.2-1.3) mg/dL AST 42 H (14-36) U/L ALT 61 H (6-35) U/L Alkaline Phosphatase 57 (38-126) U/L Total Protein 8.1 (6.3-8.2) g/dL Albumin 4.6 (3.5-5.1) g/dL Lipase 92 (23-300) U/L Urine Color Yellow (Yellow) Urine Appearance Clear (Clear) Urine pH 5.0 (5.0-9.0) Ur Specific [place] 1.024 (1.001-1.035) Urine Protein Negative (Negative) mg/dL Urine Glucose (UA) Negative (Negative) mg/dL Urine Ketones Trace H (Negative) mg/dL Ur Blood (Man) Trace (Negative) Urine Nitrate Negative (Negative) Urine Bilirubin Negative (Negative) Urine Urobilinogen 1.0 (<2.0) mg/dL Leukocyte Esterase Rfl Negative (Negative) CRISTOBAL/UL Urine RBC 6-10 H (0-2) /hpf Urine WBC 0-5 (0-3) /hpf Ur Squamous Epith Cells Occasional (Few) /hpf Urine Bacteria None seen /hpf Urine Casts 0-2 POC Urine HCG, Qual Negative (Negative) Discharge Plan Discharge Clinical Impression: Abdominal bloating, Diarrhea Patient Disposition: Home Condition: Stable Instructions: Antibiotic Form, Irritable Bowel Syndrome (ED) Additional Instructions: Try the dietary changes we discussed, and follow-up with the GI specialist. If your symptoms do not improve or if they worsen, come back to the emergency room. Patient Language: Lao Prescriptions: New famotidine 20 mg tablet 20 mg PO DAILY Qty: 30 0RF dicyclomine 20 mg tablet 20 mg PO TID PRN (Reason: abdominal pain) Qty: 30 0RF alum-mag hydroxide-simeth [Maalox Advanced] 200-200-20 mg/5 mL suspension 10 ml PO QID PRN (Reason: dyspepsia) Qty: 300 0RF Rx Instructions: administer between meals and at bedtime ondansetron 4 mg tablet,disintegrating 4 mg PO Q8H PRN (Reason: nausea and vomiting) Qty: 20 0RF Pepto-Bismol 262 mg tablet 524 mg PO QID 5 Days Qty: 40 0RF No Action sertraline 100 mg tablet letrozole 2.5 mg tablet benzonatate 200 mg capsule 200 mg PO TID PRN (Reason: cough) Qty: 20 0RF methylprednisolone [Medrol (Hunter)] 4 mg tablets,dose pack See Rx Instructions .ROUTE .COMPLEX Qty: 21 0RF Rx Instructions: orally per package directions amoxicillin-pot clavulanate 875-125 mg tablet 1 tablet PO Q12H 7 Days Qty: 14 0RF Follow-up/Referrals: Robb,[place] Carr [Primary Care Provider] Juno Castro MD [Physician, Gastroenterology] - 2 Days
== END 2025-04-17 18:17 | disposition home or self-care (01) ==
PROVIDERS: Emergency Provider Emergency Medicine; PCP Nurse Practitioner
DX: R14.0 Abdominal distension (gaseous) (principal); R19.7 Diarrhea, unspecified; J45.909 Unspecified asthma, uncomplicated
CPT/HCPCS: 36415; 80053; 81001; 81025; 83690; 85025; 96374; 99284; A9270